=== PATIENT | male | born 1995 | race African-American/Black ===

== ENCOUNTER → 2018-07-16 14:54 | Outpatient (CLI) | payer MEDICAID, SELFPAY ==
[2018-06-25 10:27] VITALS: BMI 26.3
[2018-07-16 15:22] LABS: Absolute Lymphocyte Count 1.62 X10^3/ul (0.83-4.51); Absolute Neutrophil Count 2.9 X10^3/uL (2.0-7.7); Basophil# 0.01 X10^3/uL; Basophil% 0.2 % (0-1); Eosinophil# 0.32 X10^3/uL; Eosinophils% 6.1 % (0-5); Hematocrit 42.7 % (40-54); Hemoglobin 14.2 g/dl (13.0-16.5); Lymphocyte # 1.62 X10^3/ul (4.0); Lymphocyte % 30.9 % (19-41); Mean Corp Hgb Conc 33.3 g/gl (32-36); Mean Corpuscular Hgb 27.8 pg (27.0-32.0); Mean Corpuscular Volume 83.6 fL (80-94); Mean Platelet Vol. 9.7 fl (6.2-12.0); Monocyte# 0.35 X10^3/uL; Monocyte% 6.7 % (0-10); Neutrophil # 2.94 X10^3/uL (2.7-7.7); Neutrophil % 55.9 % (47-70); Platelet Count 219 K/mm3 (150-450); RBC Distribution Width CV 13.4 % (11.6-14.6); RBC Distribution Width SD 40.8 fl (35.1-43.9); Red Blood Count 5.11 M/mm3 (4.6-6.2); White Blood Count 5.3 K/mm3 (4.4-11.0)
[2018-07-16 15:29] LABS: POSITIVE COUNT NO; POSITIVE DIFFERENTIAL NO; POSITIVE MORPHOLOGY NO
[2018-07-16 16:05] LABS: ALB/GLOB Ratio 1.2 RATIO (0.9-2.4); AST(SGOT) 20 U/L (15-37); Alanine Aminotransfer ALT/SGPT 33 U/L (16-61); Alkaline Phosphatase 76 U/L (45-117); Anion Gap 5 (5-15); BUN 14 mg/dL (7-18); Calcium,Total 9.1 mg/dL (8.5-10.1); Chloride 109 mmol/L (98-107); Creatinine, Serum 0.93 mg/dL (0.70-1.30); EST Glomerular Filtration Rate 108 mL/min (>60); Est Glom Filt Rate - Afr Amer 131 mL/min (>60); Globulin 3.3 g/dL (2.2-4.2); Glucose 90 mg/dL (74-106); Potassium 4.1 mmol/L (3.5-5.1); Protein, Total 7.3 g/dL (6.4-8.2); Sodium Level 140 mmol/L (136-145)
[2018-07-16 16:45] LABS: HIV - WCH Non-Reactive (Nonreactive)
[2018-07-16 17:15] LABS: Chlamydia Trachomatis by PCR Negative (Negative); Neisserai gonorrhoeae by PCR Negative (Negative); Probe Check PASS; Sample Adequacy Control PASS; Specimen Processing Control PASS
[2018-07-18 08:12] LABS: HEPATITIS B SURFACE AG Negative (Negative); Hepatitis A AB, Total Negative (Negative); Hepatitis A IgM Antibody Negative (Negative); Hepatitis B Core AB IgM Negative (Negative); Hepatitis B Core Ab Total Negative (Negative); Hepatitis C Ab <0.1 s/co ratio (0.0-0.9)
[2018-07-18 10:05] LABS: Hep B Surface Antibodies Non Reactive (.)
== END ==
PROVIDERS: Family Provider Internal Medicine; PCP Internal Medicine; Referring Provider Nurse Practitioner Family; Visit Provider Nurse Practitioner Family
DX: F19.10 Other psychoactive substance abuse, uncomplicated (principal); Z72.51 High risk heterosexual behavior
CPT/HCPCS: 36415; 80053; 85025; 86703; 86704; 86705; 86706; 86708; 86709; 86803; 87340; 87491; 87591

== ENCOUNTER → 2019-03-04 11:21 | Outpatient (CLI) | payer MEDICAID, SELFPAY ==
[2019-02-16 15:15] VITALS: BMI 26.3
--- NOTE | 2019-03-04 11:24 | RAD_ITS ---
STUDY: X-RAY CHEST REASON FOR EXAM: Male, 23 years old. Cough and congestion for 2 months. TECHNIQUE: Single frontal view of the chest. COMPARISON: August 07, 2017 FINDINGS: Stable mild hyperexpansion. There is no demonstrated pleural abnormality. Normal size heart. Normal mediastinum and abner. Normal visualized pulmonary arteries. Normal visualized aortic arch and descending thoracic aorta. Normal visualized thoracic spine. Normal visualized ribs, clavicles, and shoulders. There is no demonstrated abnormality of the visualized soft tissue structures of the upper abdomen. RAD/Chest 1 View IMPRESSION: Stable mild hyperexpansion with no acute finding. Electronically Signed: Reji Aguilar MD at 16:51 EDT , Service support ,
== END ==
PROVIDERS: Family Provider Internal Medicine; PCP Internal Medicine; Referring Provider Internal Medicine; Visit Provider Internal Medicine
DX: R05 Cough (principal)
CPT/HCPCS: 71045

== ENCOUNTER 2024-11-14 03:28 | Emergency (ER) | payer MEDICAID, SELFPAY ==
[2024-11-14 03:29] VITALS: BP 130/89; PULSE 97; RESP 16; TEMP 36.6; O2SAT 98; BMI 26.8
--- NOTE | 2024-11-14 03:49 | EKG12_ITS ---
Test Reason : Blood Pressure : */* mmHG Vent. Rate : 73 BPM Atrial Rate : 73 BPM P-R Int : 144 ms QRS Dur : 106 ms QT Int : 390 ms P-R-T Axes : 52 18 3 degrees QTcB Int : 429 ms Sinus rhythm Otherwise normal ECG Confirmed by GLORIA CAPELLAN, JERI ([id number]), state editor KAITLYNN CARDOZO ([id number]) on 11/15/2024 8:39:33 AM Referred By: Confirmed By: JERI CASTRO MD
--- NOTE | 2024-11-14 03:50 | EDS_ITS ---
HPI HPI - Psych History of Present Illness Chief Complaint: Mental Health Informant: patient Narrative Narrative: 29-year-old male brought in by police after he asked to come here to talk with a mental health professional. He has a history of depression and anxiety. He has been hearing voices, that is not new, he has been having thoughts of suicide, but he is unclear as to how much this is related to the voices. He states that killing himself, he knows is not the right thing to do, but I am to the point of my life where it is the only option. He states he has played out different methods of suicide in his head, and he is considered multiple different methods. He also states for the last couple months he has had intermittent chest pain, diffuse abdominal pain, vomiting, and diarrhea. No blood. No fevers or chills that he knows of. 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 PFSH PFSH Medical History TBI (traumatic brain injury) ADHD (attention deficit hyperactivity disorder) ADH disorder Alcohol abuse Home Medications ?Medication ?Instructions ?Recorded ?Last Taken ?Type NK 11/14/24 Unknown History Allergy/AdvReac Type Severity Reaction Status Date / Time No Known Allergies Allergy Verified 11/14/24 03:28 Family History Mother Anxiety Depression Arthritis Father Anxiety Arthritis Grandfather Anxiety Arthritis Depression Grandmother Anxiety Arthritis Depression Grandfather Anxiety Arthritis Depression Grandmother Anxiety Arthritis Depression Surgical History History of right knee surgery Social History (Updated 11/14/24 @ 05:[address] Trey Vega MD) Smoking Status: Heavy Smoker (>10/day) alcohol intake: current alcohol intake frequency: a few times a week substance use type: marijuana and other details: former methamphetamine what type of physical activity do you participate in: running, swimming, yoga and weight training frequency: 3-4 times per week duration: 45-60 minutes/day ROS ROS ED Constitutional Constitutional ED: Denies chills or fever(s) Eyes Eyes: Denies change in vision or diplopia ENT ENT ED: Denies rhinorrhea or sore throat Cardiovascular Cardiovascular: Reports chest pain; Denies palpitations Respiratory/Chest Respiratory/Chest: Denies cough or dyspnea Gastrointestinal Gastrointestinal: Reports abdominal pain, diarrhea and vomiting Genitourinary Genitourinary ED: Denies dysuria or hematuria Musculoskeletal Musculoskeletal: Denies back pain or neck pain Integumentary Denies abscess or rash Neurologic Neurologic: Denies headache(s), paresthesias or weakness Psychiatric Psychiatric: Reports anxiety, auditory hallucinations, suicidal ideation and suicidal thoughts; Denies homicidal ideation EXAM Physical Exam Const Vital Signs: 11/14/24 03:29 11/14/24 04:38 Temperature 98 F Temperature Source Oral Pulse Rate 97 62 Respiratory Rate 16 14 Blood Pressure 130/89 H 102/53 L Blood Pressure Mean 102 69 Pulse Ox 98 99 Positive well nourished and well developed Constitutional Narrative: Cooperative no distress General Appearance ED: well developed and NAD HEENT Reports moist mucous membranes normocephalic and atraumatic Eyes PERRL and EOMs intact bilaterally General Eye ED: Negative for scleral icterus Neck no lymphadenopathy and supple Resp normal respiratory effort and clear to auscultation bilaterally Cardio no murmurs Rate: regular rate Rhythm: regular rhythm GI non-tender and non-distended Auscultation: normoactive bowel sounds Palpation: soft Back/Spine no CVA tenderness and normal ROM Extremity normal to inspection General Extremety ED: Negative for edema General Extremity: Negative for edema Neuro oriented x3, CN's II-XII intact bilaterally, no sensory deficits noted and gait normal Sensorium / Orientation: alert Motor Exam: strength 5/5 throughout Psych cooperative, activity/motor behavior normal and denies homicidal ideation Appearance: grossly normal, appropriate and well kempt Attitude: engaged Thought Process: disorganized Thought Content: suicidality, delusion(s) Delusional Thought Content Details: Positive for grandiose and hallucination(s) Positive for auditory Attention / Concentration: attention grossly intact Memory / Cognition: memory grossly intact Skin Lesions: no lesions Rashes: no rashes MDM MDM MDM Narrative Medical decision making narrative: EKG, labs all normal including liver enzymes. Drug screen positive for cannabinoids, his alcohol is 150. Other than the alcohol level, he is medically cleared for crisis evaluation. He will be observed until later in the morning, when we will repeat his alcohol and when his level is down, he will be ready for crisis evaluation. Lab Data Attestation: I reviewed the patient's lab results. Labs: Laboratory Results - last 24 hr 11/14/24 03:53 WBC 4.9 RBC 4.77 Hgb 13.9 Hct 39.6 L MCV 83.0 MCH 29.1 MCHC 35.1 RDW Std Deviation 42.0 RDW Coeff of August 13.6 Plt Count 238 MPV 10.4 Immature Gran % (Auto) 0.400 Neut % (Auto) 56.5 Lymph % (Auto) 33.5 [place] % (Auto) 8.0 Eos % (Auto) 0.8 Baso % (Auto) 0.8 Absolute Neuts (auto) 2.8 Absolute Lymphs (auto) 1.64 Nucleated RBC % 0 Sodium 138 Potassium 3.6 Chloride 105 Carbon Dioxide 20.5 L Anion Gap 13 BUN 8 Creatinine 0.97 Estim Creat Clear Calc 125.56 Est GFR (MDRD) Non-Af 109 BUN/Creatinine Ratio 8.5 L Glucose 110 H Calcium 8.5 Total Bilirubin 0.28 AST 35 ALT 20 Alkaline Phosphatase 53 Total Protein 5.5 L Albumin 3.6 Globulin 1.9 L Albumin/Globulin Ratio 1.9 Urine Opiates Screen NEGATIVE U Buprenorphine Qual NEGATIVE Ur Oxycodone Screen NEGATIVE Urine Methadone Screen NEGATIVE Urine Fentanyl Screen NEGATIVE Ur Barbiturates Screen NEGATIVE Ur Phencyclidine Scrn NEGATIVE Ur Amphetamines Screen NEGATIVE U Benzodiazepines Scrn NEGATIVE Urine Cocaine Screen NEGATIVE U Cannabinoids Screen PRESUMPTIVE POSITIVE Ethyl Alcohol 150.0 H Radiography Diagnostic Testing: Clinical Impression(s) from Imaging Studies Chest X-Ray 11/14/24 03:55 IMPRESSION: No focal infiltrate or consolidation is seen within the lungs. Reading Location: [facility] Rhythm Strip Rhythm Strip: Sinus Rhythm Rate: 73 Ectopy: None EKG Initial EKG: Attestation: I personally reviewed and interpreted this EKG as follows: Interpretation: Sinus Rhythm and No Acute Injury Pattern Comments: Nml axis & intervals; nml EKG Discharge Plan Triage Chief Complaint: Mental Health ED Provider: Trey Vega Dx/Rx/DC Orders Clinical Impression: Suicidal ideation, Acute psychosis, Alcohol intoxication Prescriptions: No Action NK Primary Care Provider: Care Physician,No Primary Referrals: Beni Leonard MD [Med Staff - Active Staff] - Print Language: German
--- NOTE | 2024-11-14 03:55 | RAD_ITS ---
PROCEDURE: CHEST 1 VIEW (PORTABLE) 11/14/2024 REASON FOR EXAM: CHEST PAIN TECHNIQUE: Frontal view of the chest. COMPARISON: None. FINDINGS: The cardiac silhouette is within normal limits. No focal infiltrate or consolidation is seen within the lungs. There is no pneumothorax identified. No acute osseous abnormality is present. RAD/Chest 1 View (Portable) IMPRESSION: No focal infiltrate or consolidation is seen within the lungs. Reading Location: [id number]
[2024-11-14 04:15] LABS: Absolute Lymphocyte Count 1.64 X10^3/uL (0.83-4.51); Absolute Neutrophil Count 2.8 X10^3/uL (2.0-7.7); Basophil# 0.04 X10^3/uL; Basophil% 0.8 % (0-1); Eosinophil# 0.04 X10^3/uL; Eosinophils% 0.8 % (0-5); Hematocrit 39.6 % (40-54); Hemoglobin 13.9 g/dL (13.0-16.5); Lymphocyte # 1.64 X10^3/ul (0.83-4.51); Lymphocyte % 33.5 % (19-41); Mean Corp Hgb Conc 35.1 g/dL (32-36); Mean Corpuscular Hgb 29.1 pg (27.0-32.0); Mean Platelet Vol. 10.4 fl (6.2-12.0); Monocyte# 0.39 X10^3/uL; NRBC Flagged by Analyzer 0 % (0-5); Neutrophil # 2.77 X10^3/uL (2.7-7.7); Neutrophil % 56.5 % (47-70); Platelet Count 238 K/mm3 (150-450); RBC Distribution Width CV 13.6 % (11.6-14.6); Red Blood Count 4.77 M/mm3 (4.6-6.2); White Blood Count 4.9 K/mm3 (4.4-11.0)
[2024-11-14 04:38] VITALS: BP 102/53; PULSE 62; RESP 14; O2SAT 99
[2024-11-14 04:52] LABS: Amphetamine Urine NEGATIVE (<1000 ng/mL); Barbiturate Urine NEGATIVE (< 200 ng/mL); Benzodiazepine Urine NEGATIVE (< 200 ng/mL); Buprenorphine Urine NEGATIVE (< 200 ng/mL); Cocaine Urine NEGATIVE (< 300 ng/mL); Fentanyl, Urine NEGATIVE; Methadone Urine NEGATIVE (< 300 ng/mL); Opiates Urine NEGATIVE (< 300 ng/mL); Oxycodone, Urine NEGATIVE (< 100 ng/mL); PCP Urine NEGATIVE (< 25 ng/mL); THC Urine PRESUMPTIVE POSITIVE (< 50 ng/mL)
[2024-11-14 04:53] LABS: ALB/GLOB Ratio 1.9 RATIO (0.9-2.4); AST(SGOT) 35 U/L (<=37); Alanine Aminotransfer ALT/SGPT 20 U/L (<=46); Albumin, Serum 3.6 g/dL (3.5-5.0); Alkaline Phosphatase 53 U/L (40-129); Anion Gap 13 (5-15); BUN 8 mg/dL (4-19); BUN/Creat Ratio 8.5 RATIO (10-20); Calcium,Total 8.5 mg/dL (7.6-11.0); Carbon Dioxide 20.5 mmol/L (21.0-32.0); Chloride 105 mmol/L (98-108); Creatinine, Serum 0.97 mg/dL (0.70-1.20); EST Glomerular Filtration Rate 109 (>60); Estimated Creatinine Clearance 125.56 ml/min (50-250); Globulin 1.9 g/dL (2.2-4.2); Glucose 110 mg/dL (70-99); Potassium 3.6 mmol/L (3.3-5.1); Protein, Total 5.5 g/dL (5.9-8.4); Sodium Level 138 mmol/L (133-145); Total Bilirubin 0.28 mg/dL (0.00-1.30)
[2024-11-14 07:43] LABS: Alcohol, Blood (Medical)-Serum 90.7 mg/dL (<=10.0)
[2024-11-14] MEDS: LORazepam 0.5 MG Tablet PO (09:00)
[2024-11-14 11:09] VITALS: BP 126/73; PULSE 73; RESP 17; TEMP 36.6; O2SAT 99
--- NOTE | 2024-11-14 11:12 | CM.ED ---
Social Work: wash worker made phone contact with Crisis to get an update on placement status for patient and spoke with Blayne who stated Nevaeh is still typing up the psychiatric assessment and when completed, will fax over to [facility]. Just to call and provide updates as they become available. Lucero Benavidez, COMBAT ENGINEER, SENIOR PARTNER
[2024-11-14 12:54] VITALS: BP 129/73; PULSE 68; RESP 16; O2SAT 99
[2024-11-14 14:44] VITALS: BP 129/73; PULSE 68; RESP 16; TEMP 36.6; O2SAT 99
== END 2024-11-14 14:45 ==
PROVIDERS: Emergency Provider Emergency Medicine; Visit Provider Emergency Medicine
DX: F23 Brief psychotic disorder (principal); F15.11 Other stimulant abuse, in remission; R45.851 Suicidal ideations; F32.A Depression, unspecified; F41.9 Anxiety disorder, unspecified; F10.129 Alcohol abuse with intoxication, unspecified; Y90.6 Blood alcohol level of 120-199 mg/100 ml; R07.9 Chest pain, unspecified; R10.84 Generalized abdominal pain; R11.10 Vomiting, unspecified; R19.7 Diarrhea, unspecified; F17.200 Nicotine dependence, unspecified, uncomplicated
CPT/HCPCS: 71045; 80053; 80307; 82077; 85025; 93005; 99285

== ENCOUNTER 2025-02-21 15:49 | Emergency (ER) | payer MEDICAID, SELFPAY ==
[2025-02-21 15:50] VITALS: BP 125/106; PULSE 117; RESP 20; TEMP 36.4; O2SAT 100; BMI 29.4
--- NOTE | 2025-02-21 16:03 | EDS_ITS ---
HPI History of Present Illness Chief Complaint: Headache Onset/Context/Timing Onset: Today Narrative Narrative: Nontraumatic headache with history of migraines. States today felt sudden numbness pain up his neck causing go to the ground. Migraine flared up. Photophobia phonophobia with aura. Nausea and vomiting no hematemesis. Reported to nursing dyspnea however reported secondary to his pains. He has felt similar symptoms past with his migraines. Denies fevers. She has had previous imagings of his brain. No allergies. Prior similar symptoms: Yes PFSH PFSH Medical History Anxiety TBI (traumatic brain injury) ADHD (attention deficit hyperactivity disorder) ADH disorder Alcohol abuse Home Medications ?Medication ?Instructions ?Recorded ?Last Taken ?Type aripiprazole 10 mg tablet 10 mg PO DAILY 02/21/25 Unkn own History atomoxetine 40 mg capsule 40 mg PO BID 02/21/25 Unknow n History hydroxyzine HCl 50 mg tablet 50 mg PO Q6H PRN anxiety 02/21/25 Unknown History quetiapine 100 mg tablet 300 mg PO QHS 02/21/25 Unkno wn History Allergy/AdvReac Type Severity Reaction Status Date / Time No Known Allergies Allergy Verified 02/21/25 15:52 Family History Mother Anxiety Depression Arthritis Father Anxiety Arthritis Grandfather Anxiety Arthritis Depression Grandmother Anxiety Arthritis Depression Grandfather Anxiety Arthritis Depression Grandmother Anxiety Arthritis Depression Surgical History History of right knee surgery Social History Smoking Status: Never smoker alcohol intake: current alcohol intake frequency: a few times a week substance use type: marijuana and other details: former methamphetamine what type of physical activity do you participate in: running, swimming, yoga and weight training frequency: 3-4 times per week duration: 45-60 minutes/day ROS ROS ED Constitutional Constitutional ED: Denies chills, fever(s) or sweats Eyes Eyes: Reports blurry vision and other Details: Photophobia and phonophobia. ENT ENT ED: Denies sore throat Cardiovascular Cardiovascular: Denies chest pain, leg edema, palpitations or racing heartbeat Respiratory/Chest Respiratory/Chest: Reports dyspnea; Denies cough or dyspnea on exertion Gastrointestinal Gastrointestinal: Reports nausea and vomiting; Denies abdominal pain or diarrhea Genitourinary Genitourinary ED: Denies dysuria, hematuria or urinary frequency Musculoskeletal Musculoskeletal: Denies back pain, extremity pain or neck pain Integumentary Denies rash or wounds Neurologic Neurologic: Reports headache(s) and paresthesias; Denies weakness EXAM Physical Exam Const Vital Signs: 02/21/25 15:50 02/21/25 17:49 Temperature 97.6 F L 98.4 F Temperature Source Oral Pulse Rate 117 H 99 Respiratory Rate 20 H 18 Blood Pressure 125/106 H 136/87 H Blood Pressure Mean 112 103 Pulse Ox 100 100 Oxygen Delivery Method Room Air Positive well nourished and well developed Constitutional Narrative: Nontoxic General Appearance ED: well developed HEENT Reports moist mucous membranes normocephalic and atraumatic Eyes General Eye ED: Yes normal appearance of both eyes Neck full ROM and no meningeal signs Chest Wall Chest: Negative for tenderness Resp normal respiratory effort and normal air movement Effort and Inspection: symmetric chest movement; Negative for respiratory distress Cardio regular rhythm and no murmurs Rate: tachycardic Peripheral Pulses: pulses 2+ throughout GI normal to inspection, nondistended, normoactive bowel sounds and non-tender Palpation: Negative for guarding or rebound tenderness present Extremity normal to inspection General Extremety ED: Negative for edema or tenderness General Extremity: Negative for edema Neuro oriented x3, CN's II-XII intact bilaterally and no sensory deficits noted Neuro Narrative: No focal deficits. Sensorium / Orientation: awake and alert Skin no rashes or lesions noted and no wounds MDM MDM MDM Narrative Medical decision making narrative: Interventions / MDM: Differential diagnosis: Migraine headache, history of anxiety Diagnosis considered but do not suspect: No clinical meningitis My EKG interpretation: N/A Imaging independently reviewed and interpreted by myself: N/A External documents reviewed: N/A Test considered but not ordered:N/A ED course: Presenting migraine symptoms no recent head trauma. No focal deficits. Nausea vomiting he is tachycardic denies hematemesis. IV established, will give fluids Reglan and Benadryl. Will reevaluate. Headache improved requesting anxiety medication with hydroxyzine was given. Reevaluation symptoms all improved. Discharged with outpatient follow-up. All questions were answered. Re-evaluation: stable Disposition discussed with patient/family/significant other: Patient Case discussed with consulting clinician: N/A This note was generated with [employer] dictation software. It may contain incorrect words, spelling, and punctuation that were not noted in checking the note before signing. Discharge Plan Triage Chief Complaint: Headache ED Provider: Cuong Aguilar Dx/Rx/DC Orders Clinical Impression: Headache, migraine, History of anxiety Instructions: ED, Migraine (Classical) Prescriptions: No Action hydroxyzine HCl 50 mg tablet 50 mg PO Q6H PRN (Reason: anxiety) aripiprazole 10 mg tablet 10 mg PO DAILY atomoxetine 40 mg capsule 40 mg PO BID quetiapine 100 mg tablet 300 mg PO QHS Primary Care Provider: Care Physician,No Primary Referrals: Care Physician,No Primary [Primary Care Provider] - Alida Estevez DO [[facility]] - 1-2 Weeks Print Language: Belarusian Disposition Disposition: Home, Self Care Discharge Date/Time: 02/21/25 17:55
[2025-02-21] MEDS: DiphenhydrAMINE 50 MG/ML Syringe 25 MG IV (16:16)
[2025-02-21] MEDS: 0.9% Normal Saline (1000mL) 1,000 ML 999 ML IV (16:18)
[2025-02-21] MEDS: hydrOXYzine PAM 25 MG Capsule 50 MG PO (16:56)
[2025-02-21 17:49] VITALS: BP 136/87; PULSE 99; RESP 18; TEMP 36.9; O2SAT 100
== END 2025-02-21 17:55 | disposition home or self-care (01) ==
PROVIDERS: Emergency Provider Emergency Medicine; Visit Provider Emergency Medicine
DX: G43.909 Migraine, unspecified, not intractable, without status migrainosus (principal); F41.9 Anxiety disorder, unspecified; Z79.899 Other long term (current) drug therapy; F90.9 Attention-deficit hyperactivity disorder, unspecified type
CPT/HCPCS: 96361; 96374; 96375; 99282; A4216

== ENCOUNTER 2025-05-09 20:41 | Emergency (ER) | payer MEDICAID, SELFPAY ==
[2025-05-09 20:41] VITALS: BP 116/79; PULSE 69; RESP 18; TEMP 36.8; O2SAT 100; BMI 27.5
--- NOTE | 2025-05-09 20:48 | EKG12_ITS ---
Test Reason : DYSRHYTHMIA Blood Pressure : */* mmHG Vent. Rate : 65 BPM Atrial Rate : 65 BPM P-R Int : 138 ms QRS Dur : 94 ms QT Int : 378 ms P-R-T Axes : 56 42 11 degrees QTcB Int : 393 ms Normal sinus rhythm with sinus arrhythmia Septal infarct , age undetermined Abnormal ECG Confirmed by GLORIA CAPELLAN, JERI ([id number]), photographic editor KAITLYNN CARDOZO ([id number]) on 05/11/2025 8:24:12 AM Referred By: SARWAT Confirmed By: JERI CASTRO MD
[2025-05-09 21:18] LABS: Hematocrit 39.0 % (40-54); Hemoglobin 13.3 g/dL (13.0-16.5); Immature Granulocytes Count 0.000 X10^3/uL (0.0-0.0); Mean Corp Hgb Conc 34.1 g/dL (32-36); Mean Corpuscular Volume 82.1 fL (80-94); Mean Platelet Vol. 10.9 fl (6.2-12.0); NRBC Flagged by Analyzer 0 % (0-5); Platelet Count 226 K/mm3 (150-450); RBC Distribution Width CV 13.4 % (11.6-14.6); RBC Distribution Width SD 40.4 fl (35.1-43.9); Red Blood Count 4.75 M/mm3 (4.6-6.2); White Blood Count 5.4 K/mm3 (4.4-11.0)
[2025-05-09 21:23] LABS: Anion Gap 8 (5-15); BUN 11 mg/dL (4-19); BUN/Creat Ratio 10.7 RATIO (10-20); Calcium,Total 9.8 mg/dL (7.6-11.0); Carbon Dioxide 25.2 mmol/L (21.0-32.0); Chloride 106 mmol/L (98-108); Estimated Creatinine Clearance 118.34 ml/min (50-250); Glucose 85 mg/dL (70-99); Potassium 3.9 mmol/L (3.3-5.1); Troponin T High Sensitivity < 6 ng/L (<=22)
--- NOTE | 2025-05-09 21:28 | RAD_ITS ---
PROCEDURE: CHEST PA AND LATERAL 05/09/2025 REASON FOR EXAM: CHEST PAIN TECHNIQUE: Procedure Code: RADCXR Modality: DX Procedure: CHEST PA AND LATERAL COMPARISON: 11/14/2024 FINDINGS: Lungs/Pleura: Clear. Heart/Mediastinum: Normal in size. Bones/Soft tissues: Unremarkable. RAD/Chest PA and Lateral IMPRESSION: No acute cardiopulmonary disease. Reading Location: [id number]
--- NOTE | 2025-05-09 22:41 | ED.RN ---
Pt states I'm feeling better. I really think this is my GI problem. Pt LWBS. IV removed per pt request to leave.
== END 2025-05-09 22:43 | disposition left against medical advice (07) ==
LOC: ED 22:44
DX: R07.9 Chest pain, unspecified (principal); Z53.21 Procedure and treatment not carried out due to patient leaving prior to being seen by health care provider
CPT/HCPCS: 71046; 80048; 84484; 85025; 93005